=== PATIENT | male | born 1955 | race Caucasian/White ===

== ENCOUNTER 2019-04-27 14:30 | Outpatient (RCR) | payer MEDICARE, MEDICAID ==
[~2019-04-27 14:30] MED LIST: AMITRIPTYLINE H10 M1 PO; ATIVAN0.5 MG PO; ATORVASTATIN; DEXILANT60 MG PO; DIOVAN; DIOVAN/HCT 12.51 TAB PO; ESCITALOPRAM; FLEXERIL 1010 MG/TAB PO; LORTAB 7.5/5001 TAB PO; PERCOCET 5/321 UDTAB PO; SYNTHROID0.1 MG/TAB PO; ZOFRAN4 MG PO; [UNRECOGNIZED DRUG - OTHER]; [UNRECOGNIZED DRUG - REMARK]; bp med; thyroid med
== END 2019-05-19 14:32 | disposition home or self-care (01) ==
LOC: WSOT 14:30
DX: M77.9 Enthesopathy, unspecified (principal)

== ENCOUNTER → 2019-05-19 | Outpatient (CLI) | payer MEDICARE, MEDICAID | LOC: COL.RAD 09:43 | DX: Z13.6 Encounter for screening for cardiovascular disorders (principal); I70.0 Atherosclerosis of aorta; N28.1 Cyst of kidney, acquired; Z72.0 Tobacco use; Z90.5 Acquired absence of kidney; Z85.528 Personal history of other malignant neoplasm of kidney ==

== ENCOUNTER 2019-09-18 01:26 | Emergency (ER) | payer MEDICARE, MEDICAID ==
[~2019-09-18] VITALS: Wt 77.3 kg
[2019-09-18 01:30] VITALS: TEMP 98.7
[2019-09-18 02:22] LABS: BASO % 0.3 % (0.0-2.0); EOS # 0.1 (0.0-0.7); EOS % 0.5 % (0-4.0); GRAN # 9.7 (1.4-6.5); GRAN % 84.6 % (42.2-75.2); HEMATOCRIT 40.9 % (42.0-52.0); LYMPH # 0.8 (1.2-3.4); LYMPH % 7.2 % (20.0-51.0); MEAN CELL VOLUME 86 fl (80.0-100.0); MEAN CORPUSCULAR HEMOGLOBIN 30 pg (27.0-31.0); MEAN CORPUSCULAR HGB CONC 34 g/dl (33.0-37.0); MEAN PLATELET VOLUME 10.1 fl (7.4-10.4); MONO # 0.8 (0.1-0.6); MONO % 6.5 % (1.7-9.3); PLATELET COUNT 254 K/mm3 (130-400); RED BLOOD COUNT 4.75 M/mm3 (4.20-5.60); REDCELL DISTRIBUTION WIDTH-CV 12.4 % (11.5-14.5)
[2019-09-18 02:32] LABS: ALANINE AMINOTRANSFERASE 31 U/L (21-72); ALBUMIN 3.6 gm/dL (3.5-5.0); ALKALINE PHOSPHATASE 47 U/L (50-136); AST,SGOT 16 U/L (15-37); BILIRUBIN,TOTAL 1.9 mg/dL (0.0-1.0); BLOOD UREA NITROGEN 17 mg/dL (9-20); CALCIUM 9.1 mg/dL (8.4-10.2); CARBON DIOXIDE 26 mmol/L (22-30); CREATININE, serum 1.36 (0.66-1.25); GLUCOSE 122 mg/dL (74-106); TOTAL PROTEIN 6.2 gm/dL (6.4-8.2)
[2019-09-18 02:39] LABS: ALCOHOL(ethanol),MEDICAL < 10 mg/dL
[2019-09-18 02:44] LABS: TROPONIN-I < 0.012 ng/mL (0.000-0.035)
[2019-09-18 03:47] LABS: TRICYCLIC ANTIDEPRESS URINE NEGATIVE
[2019-09-18 03:50] LABS: CHLORIDE 105 mmol/L (98-107)
[2019-09-18 03:51] LABS: POTASSIUM 3.7 mmol/L (3.4-5.0); SODIUM 138 mmol/L (137-145)
[2019-09-18 03:52] LABS: ANION GAP 7 mmol/L (7-16)
[2019-09-18 04:14] VITALS: BP 115/81; PULSE 75
== END 2019-09-18 04:16 | disposition home or self-care (01) ==
LOC: COL.ER 01:26
PROVIDERS: Emergency Medicine
DX: F19.10 Other psychoactive substance abuse, uncomplicated (principal); R55 Syncope and collapse; I10 Essential (primary) hypertension; F17.210 Nicotine dependence, cigarettes, uncomplicated; Z90.49 Acquired absence of other specified parts of digestive tract; Z90.89 Acquired absence of other organs
CPT/HCPCS: J2405; J7030

== ENCOUNTER 2019-11-18 08:59 | Emergency (ER) | payer SELFPAY ==
[~2019-11-18] VITALS: Ht 180.3 cm; Wt 80.5 kg
[2019-11-18 09:01] VITALS: BP 132/89; PULSE 93; TEMP 97.8
[2019-11-18] MEDS ORDERED: DIOVAN/HCT 12.51 TAB PO (09:15)
[2019-11-18] MEDS ORDERED: PRILOSEC 20MG20 MG PO (09:15)
[2019-11-18] MEDS ORDERED: ANTIVERT 25MG25 MG PO (10:18)
== END 2019-11-18 11:15 | disposition home or self-care (01) ==
LOC: COL.ER 08:59
DX: S06.0X0A Concussion without loss of consciousness, initial encounter (principal); F17.210 Nicotine dependence, cigarettes, uncomplicated; Z87.828 Personal history of other (healed) physical injury and trauma; W01.10XA Fall on same level from slipping, tripping and stumbling with subsequent striking against unspecified object, initial encounter; Y99.0 Civilian activity done for income or pay

== ENCOUNTER 2021-05-12 13:05 | Emergency (ER) | payer MEDICARE, MEDICAID ==
[~2021-05-12] VITALS: Ht 177.8 cm; Wt 86.4 kg
[~2021-05-12 13:05] MED LIST changes: +ANTIVERT 25MG25 MG PO; +PRILOSEC 20MG20 MG PO
[2021-05-12 13:28] VITALS: TEMP 98.3
[2021-05-12 14:50] VITALS: BP 132/85; PULSE 85
[2021-05-12] MEDS ORDERED: AMOXICILLIN/CLA1 TA1 PO (15:11)
== END 2021-05-12 14:50 | disposition home or self-care (01) ==
LOC: COL.ER 13:05
DX: S61.402A Unspecified open wound of left hand, initial encounter (principal); S61.401A Unspecified open wound of right hand, initial encounter; F42.4 Excoriation (skin-picking) disorder; F17.210 Nicotine dependence, cigarettes, uncomplicated; X58.XXXA Exposure to other specified factors, initial encounter

== ENCOUNTER 2021-08-23 15:42 | Emergency (ER) | payer MEDICARE, MEDICAID ==
[~2021-08-23] VITALS: Ht 177.8 cm; Wt 86.4 kg
[~2021-08-23 15:42] MED LIST changes: +AMOXICILLIN/CLA1 TA1 PO
[2021-08-23 16:28] LABS: MEAN CELL VOLUME 83 fl (80.0-100.0); MEAN CORPUSCULAR HEMOGLOBIN 28 pg (27.0-31.0); MEAN CORPUSCULAR HGB CONC 34 g/dl (33.0-37.0); MEAN PLATELET VOLUME 9.2 fl (7.4-10.4); PLATELET COUNT 243 K/mm3 (130-400); RED BLOOD COUNT 5.67 M/mm3 (4.20-5.60); REDCELL DISTRIBUTION WIDTH-CV 13.1 % (11.5-14.5)
[2021-08-23 16:55] LABS: ALANINE AMINOTRANSFERASE 17 U/L (0-55); ALBUMIN 3.4 gm/dL (3.4-4.8); ALKALINE PHOSPHATASE 93 U/L (0-750); ANION GAP 11 mmol/L; AST,SGOT 18 U/L (5-34); BILIRUBIN,TOTAL 0.9 mg/dL (0.2-1.2); BLOOD UREA NITROGEN 14 mg/dL (8-26); CALCIUM 9.7 mg/dL (8.4-10.2); CARBON DIOXIDE 20 mEq/L (23-31); CHLORIDE 104 mmol/L (98-107); CREATININE, serum 1.31 mg/dL (0.72-1.25); GLUCOSE 91 mg/dL (70-99); SODIUM 135 mmol/L (136-145); TOTAL PROTEIN 6.7 gm/dL (6.2-8.1)
[2021-08-23 17:10] LABS: TROPONIN-I < 0.010 ng/mL (0.00-0.033)
[2021-08-23 17:31] LABS: BAND 12 % (0-10); LYMPHOCYTE 7 % (20.0-51.0); NEUTROPHILS 70 % (42.0-75.2); PLATELET ESTIMATE NORMAL (NORMAL)
[2021-08-23 18:29] LABS: COLLECTION METHOD CLEAN CATCH
[2021-08-23 18:44] LABS: MUCOUS Present /lpf; PH 5 (5-8); SQUAMOUS EPITHELIAL None Seen /hpf; URINE APPEARANCE Clear; URINE BACTERIA None Seen /hpf; URINE BILIRUBIN Negative (NEGATIVE); URINE BLOOD 1+ (NEGATIVE); URINE COLOR Straw; URINE GLUCOSE Negative (NEGATIVE); URINE KETONE Negative (NEGATIVE); URINE LEUKOCYTE ESTERASE Negative (NEGATIVE); URINE NITRATE Negative (NEGATIVE); URINE PROTEIN(semi-quant) Negative (NEGATIVE); URINE RBC None Seen /hpf; URINE UROBILINOGEN Negative (NEGATIVE); URINE WBC None Seen /hpf
[2021-08-23 20:15] VITALS: BP 148/74; PULSE 88; TEMP 99.4
== END 2021-08-23 20:20 | disposition home or self-care (01) ==
LOC: COL.ER 15:42
PROVIDERS: Emergency Medicine
DX: U07.1 COVID-19 (principal); E87.1 Hypo-osmolality and hyponatremia; R94.4 Abnormal results of kidney function studies; I10 Essential (primary) hypertension; F17.200 Nicotine dependence, unspecified, uncomplicated; Z79.899 Other long term (current) drug therapy
CPT/HCPCS: J1885; M0243; Q0244

== ENCOUNTER 2021-11-09 13:45 | Outpatient (RCR) | payer MEDICARE, MEDICAID | END 2021-11-23 | disposition home or self-care (01) | LOC: PT.GENESIS | DX: M51.24 Other intervertebral disc displacement, thoracic region (principal) ==

== ENCOUNTER 2022-02-08 09:57 | Emergency (ER) | payer MEDICARE, MEDICAID ==
[~2022-02-08] VITALS: Ht 180.3 cm; Wt 81.8 kg
[2022-02-08 10:11] VITALS: BP 140/109; TEMP 98.2
[2022-02-08] MEDS ORDERED: FLEXERIL 1010 MG/TAB PO (11:58)
[2022-02-08] MEDS ORDERED: ZOFRAN ODT4 MG PO (11:58)
[2022-02-08 12:20] VITALS: PULSE 85
== END 2022-02-08 12:20 | disposition home or self-care (01) ==
LOC: COL.ER 09:57
DX: S16.1XXA Strain of muscle, fascia and tendon at neck level, initial encounter (principal); S39.012A Strain of muscle, fascia and tendon of lower back, initial encounter; F17.200 Nicotine dependence, unspecified, uncomplicated; V89.2XXA Person injured in unspecified motor-vehicle accident, traffic, initial encounter
CPT/HCPCS: J3010

== ENCOUNTER 2022-05-20 16:03 | Emergency (ER) | payer MEDICARE, MEDICAID ==
[~2022-05-20] VITALS: Ht 180.3 cm; Wt 81.8 kg
[~2022-05-20 16:03] MED LIST changes: +ZOFRAN ODT4 MG PO
[2022-05-20 16:18] VITALS: TEMP 97.4
[2022-05-20 16:54] LABS: BASO # 0.1 K/mm3 (0.0-0.2); BASO % 0.4 % (0.0-2.0); EOS # 0.1 K/mm3 (0.0-0.7); EOS % 0.5 % (0.0-4.0); GRAN # 14.1 K/mm3 (1.4-6.5); GRAN % 85.3 % (42.2-75.2); HEMATOCRIT 50.8 % (42.0-52.0); HEMOGLOBIN 17.7 g/dl (13.5-18.0); LYMPH % 5.8 % (20.0-51.0); MEAN CELL VOLUME 81 fl (80.0-100.0); MEAN CORPUSCULAR HEMOGLOBIN 28 pg (27-31); MEAN CORPUSCULAR HGB CONC 35 g/dl (33.0-37.0); MEAN PLATELET VOLUME 9.5 fl (7.4-10.4); MONO # 1.3 K/mm3 (0.1-0.6); MONO % 7.5 % (1.7-9.3); PLATELET COUNT 339 K/mm3 (130-400); RED BLOOD COUNT 6.24 M/mm3 (4.20-5.60); REDCELL DISTRIBUTION WIDTH-CV 13.1 % (11.5-14.5)
[2022-05-20 17:28] LABS: ALBUMIN 3.8 gm/dL (3.4-4.8); BILIRUBIN,TOTAL 2.3 mg/dL (0.2-1.2); CALCIUM 10.4 mg/dL (8.4-10.2); CREATININE, serum 1.35 mg/dL (0.72-1.25); POTASSIUM 3.8 mmol/L (3.5-4.5); TOTAL PROTEIN 7.6 gm/dL (6.2-8.1)
[2022-05-20] MEDS ORDERED: ZOFRAN ODT4 MG PO (18:45)
[2022-05-20] MEDS ORDERED: CIPRO 500MG TA500 MG PO (18:45)
[2022-05-20] MEDS ORDERED: FLAGYL500 MG PO (18:45)
[2022-05-20 20:19] VITALS: BP 126/85; PULSE 87
== END 2022-05-20 20:20 | disposition home or self-care (01) ==
LOC: COL.ER 16:03
PROVIDERS: Personal Emergency Response Attendant
DX: K52.9 Noninfective gastroenteritis and colitis, unspecified (principal); K62.5 Hemorrhage of anus and rectum; F17.200 Nicotine dependence, unspecified, uncomplicated; Z79.891 Long term (current) use of opiate analgesic; Z28.310 Unvaccinated for COVID-19
CPT/HCPCS: C9113; J1956; J2270; J2405; J7030; Q9967

== ENCOUNTER → 2022-10-01 | Outpatient (CLI) | payer MEDICARE, MEDICAID ==
[~2022-10-01] MED LIST changes: +CIPRO 500MG TA500 MG PO; +FLAGYL500 MG PO
== END ==
LOC: COL.RAD 06:44
DX: J43.9 Emphysema, unspecified (principal); I25.10 Atherosclerotic heart disease of native coronary artery without angina pectoris; F17.200 Nicotine dependence, unspecified, uncomplicated